=== PATIENT | male | born 1990 | race Caucasian/White ===

== ENCOUNTER 2016-11-06 13:04 | Emergency (ER) | payer SELFPAY ==
[~2016-11-06] VITALS: Ht 170.2 cm; Wt 65.0 kg
[2016-11-06 13:08] VITALS: Ht 170.2 cm; Wt 65.0 kg
[2016-11-06] MEDS ORDERED: ONDANSETRON (ODT) 4 MG TAB ODT STA (13:33)
[2016-11-06 13:40] VITALS: BP 135/77; PULSE 86; RESP 20; TEMP 98.3
[2016-11-06] MEDS ORDERED: HYDROCODONE/APAP (10/325) TAB PO ONE (14:00)
--- NOTE | 2016-11-06 14:20 | RADRPT ---
PROCEDURE: CT Brain without contrast. CLINICAL INDICATION: Headache, blurred vision and vomiting. Head trauma. TECHNIQUE: A CT of the brain was performed on a multidetector CT scanner utilizing axial sections from the skull base through the vertex without contrast. Images were reviewed on a high-resolution [employer] workstation. Exam CTDI = 45.01 mGy and the DLP = 720.23 mGy-cm. One or more of the following dose reduction techniques were used: Automated exposure control Adjustment of the mA and/or kV according to patient size. Use of iterative reconstruction technique. COMPARISON: None available FINDINGS: There is no evidence of intracranial hemorrhage, mass effect or midline shift. No abnormal intra-ax ial or extra-axial fluid collections are seen. The density of the brain is normal and the linda/whit e matter differentiation is well preserved. The osseous structures are unremarkable. Paranasal si nuses are clear. IMPRESSION: 1. No intracranial hemorrhage, mass effect or midline shift. RPTAT: AAEE .Sara Escobar MD, MD Date Time Electronically viewed and signed by .Sara Escobar MD, MD on 11/06/2016 14:20 .O/
--- NOTE | 2016-11-06 14:26 | RADRPT ---
PROCEDURE: CT maxillofacial bones. CLINICAL INDICATION: Blurred vision. Left right eye. Status post head injury. TECHNIQUE: Multiphase CT scan of the face was performed in the axial plane. Coronal and sagittal re-formations were performed. The CTDI measures 29.56 mGy. The calculated radiation dose measures 5 88.41 mGy cm. One or more of the following dose reduction techniques were used: Automated exposure control. Adjustment of the mA and/or kV according to patient size. Use of iterative reconstruction technique. COMPARISON: None FINDINGS: The mandible is identified demonstrating no evidence of fracture or bony dysplasia. There is no tresa dence of adjacent soft tissue swelling. The mid face and bony orbits demonstrate no evidence of acut e fracture. Evaluation of the orbits demonstrates the globes to be normal in their size, shape, and attenuation bilaterally. No definite intra or extraconal soft tissue masses are seen. The optic n erve and nerve sheath complexes bilaterally appear unremarkable. Evaluation of the adjacent paranas al sinuses demonstrate no evidence of mucosal disease, air-fluid level, or opacification. IMPRESSION: No evidence of facial/orbital rim fracture. RPTAT: BB .Sara Escobar MD, Date Time Electronically viewed and signed by .Sara Escobar MD, on 11/06/2016 14:26 .O/
[2016-11-06] MEDS ORDERED: IBUP-1542 PO (14:32)
--- NOTE | 2016-11-06 18:24 | ERD ---
ER Documentation Chief Complaint Date/Time DATE: 11/06/16 TIME: 18:21 Chief Complaint headache ,blurry vision ,vomitig ,rt eye redness s/p soccer injury ,no k/o HPI Patient is a 18-year-old male with no medical problems who presents after a head injury. The patient said that 1 hour ago he was playing soccer and was kicked in the face. He was kicked on the right side of his face. He lost consciousness and had 2 episodes of vomiting. He has right-sided facial swelling as well. He has redness of the right eye. Upon review of old medical records this is the patient's first visit to the emergency department. He does not currently have a primary doctor. ROS All systems reviewed and are negative except as per history of present illness. Medications Home Meds Active Scripts Ibuprofen* (Motrin*) 600 Mg Tab, 600 MG PO Q8, #30 TAB Prov:WEI ROSENBAUM MD 11/06/16 Allergies Allergies: Coded Allergies: No Known Allergy (Unverified , 11/06/16) PMhx/Soc History of Surgery: No Anesthesia Reaction: No Hx Neurological Disorder: No Hx Respiratory Disorders: No Hx Cardiac Disorders: No Hx Psychiatric Problems: No Hx Miscellaneous Medical Probl: No Hx Alcohol Use: No Hx Substance Use: No Hx Tobacco Use: No Smoking Status: Never smoker FmHx Family History: No diabetes Physical Exam Vitals Vital Signs Date Time Temp Pulse Resp B/P Pulse Ox O2 Delivery O2 Flow Rate FiO2 11/06/16 13:40 98.3 86 20 135/77 98 Room Air 11/06/16 13:08 98.1 83 16 142/82 98 Physical Exam Const: No acute distress Head: Atraumatic Eyes: Subconjunctival hemorrhage to the right eye ENT: Swelling to the right side of the face with tenderness to palpation but without crepitus Neck: Full range of motion..~ No meningismus. Resp: Clear to auscultation bilaterally Cardio: Regular rate and rhythm, no murmurs Abd: Soft, non tender, non distended. Normal bowel sounds Skin: Swelling to the right face Back: No midline or flank tenderness Ext: No cyanosis, or edema Neur: Awake and alert, cranial nerves II through XII intact, strength is 5 out of 5 in all 4 extremities Psych: Normal Mood and Affect Results 24 hrs Current Medications Medications (Trade) Dose Ordered Sig/Vineet Route PRN Reason Start Time Stop Time Status Last Admin Dose Admin Acetaminophen/ Hydrocodone Bitart (Orestes (10/325)) 1 tab ONCE ONCE PO 11/06/16 14:00 11/06/16 14:01 DC 11/06/16 13:41 Ondansetron HCl (Zofran Odt) 4 mg ONCE STAT ODT 11/06/16 13:33 11/06/16 13:34 DC 11/06/16 13:40 Procedures/MDM CT head shows no skull fracture or intracranial hemorrhage per radiology. CT face shows no fracture per radiology. Smoking Cessation Therapy: Pt. was lectured for greater than 3 minutes on the health risks of continued smoking and the benefits of cessation. Patient is a 26-year-old male with no medical problems who presents with likely concussion. CT scan of the brain and face show no fractures or hemorrhage. I believe outpatient management is appropriate. The patient will follow up with a local clinics within 24-48 hours for reevaluation. The patient can return for any worsening symptoms. Departure Diagnosis: Primary Impression: Concussion Encounter type: initial encounter Loss of consciousness presence/duration: with LOC of 30 min or less Qualified Code: S06.0X1A - Concussion, with LOC of 30 min or less, initial encounter Additional Impression: Acute head injury Encounter type: initial encounter Qualified Code: S09.90XA - Acute head injury, initial encounter Condition: Fair Patient Instructions: After a Concussion Referrals: [facility] Usted se asif hecho un examen mdico de control que le indica que no est en patito condicin que requiera tratamiento urgente en el Departamento de Emergencia. Un estudio ms profundo y el tratamiento de farley condicin pueden esperar sin ningn riesgo hasta que usted sea atendida/o en el consultorio de farley mdico o patito cl henrik. Es responsabilidad suya arreglar patito irma para el seguimiento del han. MANEJO DE CONDICIONES NO URGENTES EN EL FUTURO 1) Si usted tiene un mdico de atencin primaria: Usted debera llamar a farley mdico de atencin primaria antes de venir al departamento de emergencia. Despus de las horas de consultorio, farley doctor o farley asociado/a est disponible por telfono. El mdico o enfermero de coco en el servicio telefnico puede asesorarle por alhaji medio para atender el problema, o han contrario se puede programar patito irma. 2) Si usted no tiene un mdico de atencin primaria: Llame al mdico o clnica de referencia que aparece abajo maggie las horas de consultorio para hacer patito irma para que le vean. CLINICAS: [place] [id number] [phone] [facility] [phone] [place] [id number] [phone] [place] [phone] [place] [id number] [phone] [facility] [phone] [address] Additional Instructions: Llame al doctor MAANA y paul patito IRMA PARA DENTRO DE 1-2 FRITZ.Dgale a la secretaria que nosotros le instruimos hacer esta irma.Avise o llame si farley condicin se empeora antes de la irma. Regresa aqui si peor o no mejor. WEI ROSENBAUM MD Nov 06, 2016 18:24
== END 2016-11-06 14:00 | disposition home or self-care (01) ==
LOC: E/R 13:04
DX: S06.0X1A Concussion with loss of consciousness of 30 minutes or less, initial encounter (principal); R40.2252 Coma scale, best verbal response, oriented, at arrival to emergency department; R11.10 Vomiting, unspecified; R40.2142 Coma scale, eyes open, spontaneous, at arrival to emergency department; R40.2362 Coma scale, best motor response, obeys commands, at arrival to emergency department; W21.02XA Struck by soccer ball, initial encounter; Y92.9 Unspecified place or not applicable
CPT/HCPCS: 70450; 70486